=== PATIENT | male | born 1935 | race Caucasian/White ===

== ENCOUNTER 2017-04-23 12:56 | Emergency (ER) | payer OTHER ==
[2017-04-23 13:14] VITALS: BMI 25.7
--- NOTE | 2017-04-23 13:30 | DR.MBACK ---
HPI - Time Seen Time seen: 13:45 - PCP Primary Care Physician: Quoc PAGE - HPI Comment HPI Comment: PATIENT FELL LAST NIGHT. LOWER BACK PAIN. WEAK. MONITOR INDICATED A FIB WITH RVR. THIS IS NEW TO PATIENT. FEW DAYS ADO D/C FROM [facility]. BEING HAVING PROBLEM WALKING FROM WEAKNESS. HAVING CHEST PAIN. - Complaint Chief Complaint:: LOW BACK PAIN S/P FALL WHICH OCCURED LAST NIGHT. PT. HAS SEVERE PAIN UPON MOVEMENT. PT. WAS UNABLE TO GET OUT OF BED THIS MORNING DUE TO THE PAIN. DAUGHTER STATES PT. WAS REALEASED FROM [facility] ON THURSDAY. PT. HAD A RENAL STENT PLACED ON THURSDAY WELL LITHOTRIPSY. PT. HAS ALSO HAD GENERALIZED WEAKNESS AND AMS. DAUGHTER STATES PT. HAS HAD AN INDWELLING CATHETER SINCE 2015. - Reviewed Nurses Notes Review: Yes - Source History Provided: Family Member, EMS - Mode of Arrival Mode of Arrival: EMS - Timing Onset of Chief Complaint: 04/22/17 - Duration Duration: Constant Duration: Days - Location Back Pain Location: BACK, Lumbar Radiation To: None - Severity Severity: Moderate - Quality Quality: Sharp - Context Onset: Fall - Modifying Factors Worsened By: Movement, Twisting - Associated Signs and Symptoms Back Pain Symptoms: Anorexia, Hematuria Numbness: None Weakness: None PMH - PMH Past Medical History: Yes Past Medical History: Diabetes, Hypertension, Kidney Stones, [place], Renal Disease Past Medical History Comment: ACUTE KIDNEY FAILURE, RECURRENT UTI'S, PROSTATE ISSUES, PARKINSON'S Past Surgical History: Yes Surgical History: Angioplasty/Stents, CABG/Valve Surgery, Lithotripsy, Other Past Surgical History Comment: RENAL STENTS - Family History History of Family Medical Conditions: No - Social History Does patient currently use any type of tobacco product: No Have you used tobacco products in the last 12 months: No Type of Tobacco Use: None Does any household member use tobacco: No Alcohol Use: None Do you use any recreational Drugs:: No Lives With: Alone Lives Where: Home - infectious screening In the last 2 months have you had wt loss of >10#?: NO Have you had fever, night sweats or hemotysis?: No Have you traveled outside the country in the last 6 months?: No Isolation: Standard ROS - Review of Systems Constitutional: Weakness, Fatigue. negative: Chills, Fever Eyes: negative: Eye Pain, Discharge ENTM: negative: Ear Discharge, Nose Discharge, Nose Congestion, Throat Pain Respiratoy: Non-Productive Cough, Short of Breath, Wheezing. negative: Hemoptysis Cardiovascular: Chest Pain, Palpitations Gastrointestinal/Abdominal: No Symptoms Reported Genitourinary: Hematuria Neurological: Headache, Weakness, Dizziness Musculoskeletal: Back Pain, Muscle Pain, Hip Integumentary: Change in Color Hematologic/Lymphatic: Easy Bleeding, Easy Bruising Endocrine: Decreased Appetite. negative: Increased Thirst, Increased Urine All Other Systems: Reviewed and Negative Unable to Obtain Due To: Altered mental status PE - Vital Signs Vitals: Temperature 98.5 F Pulse Rate [Apical] 98 Pulse Rate [Left Brachial] 115 Pulse Rate 119 Respiratory Rate 22 Blood Pressure [Right Arm] 155/90 Blood Pressure [Left Arm] 158/84 Blood Pressure 180/74 O2 Sat by Pulse Oximetry 98 - General Limitations: Altered Mental Status General Appearance: Alert - Head Head Exam: Normal Inspection - Eyes Eye exam: PERRL, EOMI. negative: Scleral Icterus, Conjunctival Injection - ENT ENT Exam: Normal External Ear Exam - Chest Chest Inspection: Symmetric Chest Wall Rise - Respiratory Respiratory Exam: Normal Lung Sounds Bilat Respiratory Exam: Bilateral Rhonchi, Upper Rhonchi, Lower Rhonchi - Cardiovascular Cardiovascular Exam: Irregular Rhythm - Abdominal Exam Abdominal Exam: Normal Bowel Sounds, Soft. negative: Tenderness - Rectal Rectal Exam: Deferred - Genitourinary Exam: Male: Deferred - Extremities Extremities Exam: Normal Inspection - Back Back Exam: Muscle Spasm, Vertebral Tenderness (LOWER BACK) - Neurological Neurological Exam: Alert - Psychiatric Psychiatric Exam: Normal Affect, Normal Mood - Skin Skin Exam: Dry MDM - Additional Information Additional Information Obtained From: Family - Differential Diagnosis Differential Diagnosis: Fracture, Musculoskeletal Pain ([place] WEAKNESS, A FIB), Pyelonephritis (A FIB WITH RVR NEW ONSET, CHEST PAIN, GENERALIZE WEAKNESS), Strain Course - Treatment Treatment: SEE ORDERS. CARDIOSURINDER LARRY IN ED. - Reevaluation 1st: Improved - Consultation Consultation Comments: DISCUSS PATIENT WITH DR. SEN [facility]. HE ACCEPTED PATIENT FOR TRANSFER. - Education/Counseling Education/Counseling: Patient, Family, Education Educated On: Diagnosis ROR - Labs Reviewed Laboratory Results Reviewed?: Yes Result Diagrams: 04/23/17 14:02 04/23/17 14:02 Laboratory: WBC 7.1 X10^3/uL (3.6-10.0) 04/23/17 14:02 RBC 4.24 X10^6/uL (4.7-6.0) L 04/23/17 14:02 Hgb 10.5 g/dL (13.5-18.0) L 04/23/17 14:02 Hct 32.3 % (42.0-54.0) L 04/23/17 14:02 MCV 76.2 fL (80.0-100.0) L 04/23/17 14:02 MCH 24.7 pg (27.0-34.0) L 04/23/17 14:02 MCHC 32.5 g/dL (33.0-35.0) L 04/23/17 14:02 RDW 18.7 % (11.6-16.5) H 04/23/17 14:02 Plt Count 208 X10^3/uL (150.0-450.0) 04/23/17 14:02 Plt Count Comment Adequate (ADEQUATE) 04/23/17 14:02 MPV 8.2 fL (7.4-11.0) 04/23/17 14:02 Neut % 77.1 % (42.0-75.0) H 04/23/17 14:02 Lymph % 14.5 % (21.0-51.0) L 04/23/17 14:02 [place] % 7.1 % (0.0-13.0) 04/23/17 14:02 Eos % 0.7 % (0.9-2.9) L 04/23/17 14:02 Baso % 0.6 % (0.2-1.0) 04/23/17 14:02 Neut # 5.5 x10^3/uL (2.2-4.8) H 04/23/17 14:02 Lymph # 1.0 X10^3/uL (1.3-2.9) L 04/23/17 14:02 [place] # 0.5 x10^3/uL (0.3-0.8) 04/23/17 14:02 Eos # 0.0 x10^3/uL (0.0-0.2) 04/23/17 14:02 Baso # 0.0 X10^3/uL (0.0-0.1) 04/23/17 14:02 Absolute Nucleated RBC 0.0 /100WBC 04/23/17 14:02 Plt Morphology Comment Normal (NORMAL) 04/23/17 14:02 RBC Morphology Abnormal (NORMAL) 04/23/17 14:02 Hypochromasia Slight A 04/23/17 14:02 Anisocytosis 1+ A 04/23/17 14:02 Microcytosis Slight A 04/23/17 14:02 Sample Site Left radial 04/23/17 14:01 ABG pH 7.460 (7.35-7.45) H 04/23/17 14:01 ABG pCO2 35.0 mmHg (35.0-45.0) 04/23/17 14:01 ABG pO2 69.0 mmHg (80.0-100.0) L 04/23/17 14:01 ABG HCO3 24.9 mmol/L (22-26) 04/23/17 14:01 ABG O2 Saturation 95.0 % (90-100) 04/23/17 14:01 ABG Base Excess 1.3 mmol/L (-2.0-2.0) 04/23/17 14:01 Delonte Test Pos 04/23/17 14:01 A-a Gradient 37.0 mmHg 04/23/17 14:01 FiO2 21.000 04/23/17 14:01 Blood Gas Comments Fab well gb 04/23/17 14:01 Sodium 137 mmol/L (136-145) 04/23/17 14:02 Corrected Sodium 138 mmol/L (136-145) 04/23/17 14:02 Potassium 3.4 mmol/L (3.5-5.1) L 04/23/17 14:02 Chloride 99 mmol/L (98-107) 04/23/17 14:02 Carbon Dioxide 27.3 mmol/L (21-32) 04/23/17 14:02 BUN 11 mg/dL (7-18) 04/23/17 14:02 Creatinine 1.38 mg/dL (0.70-1.30) H 04/23/17 14:02 Est GFR (MDRD) Af Amer > 60 (>60) 04/23/17 14:02 Est GFR (MDRD) Non-Af 52 (>60) L 04/23/17 14:02 Glucose 162 mg/dL (65-99) H 04/23/17 14:02 Calcium 8.7 mg/dL (8.5-10.1) 04/23/17 14:02 Corrected Calcium 10.4 mg/dL (8.5-10.1) H 04/23/17 14:02 Total Bilirubin 0.40 mg/dL (0.2-1.0) 04/23/17 14:02 AST 23 Units/L (15-37) 04/23/17 14:02 ALT 18 Units/L (12-78) 04/23/17 14:02 Alkaline Phosphatase 107 Units/L (46-116) 04/23/17 14:02 Creatine Kinase 32 Units/L (39-308) L 04/23/17 14:02 CK-MB (CK-2) < 1.0 ng/mL (0-4.0) 04/23/17 14:02 CK/CKMB % Calc 3.1 % (<4) 04/23/17 14:02 Troponin I 0.05 ng/mL (0-1.5) 04/23/17 14:02 Total Protein 7.1 g/dL (6.4-8.2) 04/23/17 14:02 Albumin 1.9 g/dL (3.4-5.0) L 04/23/17 14:02 Globulin 5.2 g/dL (2.5-4.5) H 04/23/17 14:02 Albumin/Globulin Ratio 0.4 Ratio (1.1-2.1) L 04/23/17 14:02 Specimen Type Catherized urine 04/23/17 14:12 Urine Color Yellow (YELLOW) 04/23/17 14:12 Urine Appearance Clear (CLEAR) 04/23/17 14:12 Urine pH 6.5 (5.0 - 8.0) 04/23/17 14:12 Ur Specific Landers 1.015 (1.000-1.030) 04/23/17 14:12 Urine Protein 3+ (NEGATIVE) 04/23/17 14:12 Urine Glucose (UA) 2+ (NEGATIVE) 04/23/17 14:12 Urine Ketones 3+ (NEGATIVE) 04/23/17 14:12 Urine Occult Blood 5+ (NEGATIVE) 04/23/17 14:12 Urine Nitrite Negative (NEGATIVE) 04/23/17 14:12 Urine Bilirubin Negative (NEGATIVE) 04/23/17 14:12 Urine Urobilinogen Normal (NORMAL) 04/23/17 14:12 Ur Leukocyte Esterase 1+ (NEGATIVE) 04/23/17 14:12 Urine RBC 25-30 /HPF (NEGATIVE) 04/23/17 14:12 Urine WBC 0-3 /HPF (NEGATIVE) 04/23/17 14:12 Ur Squamous Epith Cells Rare /HPF (NEGATIVE) 04/23/17 14:12 Urine Bacteria Negative /HPF (NEGATIVE) 04/23/17 14:12 Ur Culture Indicated? No/not indicated 04/23/17 14:12 - XRAY XRAY Interpreted by: Radiologist XRAY Findings: REPORT DISCUSS WITH PATIENT AND HIS FAMILY. - EKG Rhythm: Afib (A FIB WITH RVR. EKG NOTED.) - Diagnosis Discharge Problem: New onset atrial fibrillation, Atrial fibrillation with RVR, Generalized weakness, Hypokalemia Fracture of L1 vertebra Qualifiers: Encounter type: initial encounter Fracture type: closed Fracture morphology: other fracture Qualified Code(s): S32.018A - Other fracture of first lumbar vertebra, initial encounter for closed fracture Back pain Qualifiers: Back pain location: low back pain Chronicity: acute Back pain laterality: bilateral Sciatica presence: without sciatica Qualified Code(s): M54.5 - Low back pain - Discharge Plan Disposition: XF [facility] Condition: Stable - Follow ups/Referrals Follow ups/Referrals: TARIQ KNOTT [Primary Care Provider] - 3 days - Instructions
--- NOTE | 2017-04-23 14:09 | RAD ---
History: Back pain, hypertension, coronary artery disease Study: Chest single view Findings: Single AP view of the chest demonstrates normal heart size. Sternal metallic sutures and me diastinal clips are present. There is limited calcification within the aortic arch. There is exaggera tion the interstitial markings in the mid and lower left lung which may be chronic in nature. The rig ht lung is clear. There are no pleural effusions. Impression: Chronic versus acute interstitial disease at the left lung base. Reported By:
[2017-04-23 14:13] LABS: BASOPHILS % (AUTO) 0.6 % (0.2-1.0); EOSINOPHILS % (AUTO) 0.7 % (0.9-2.9); HEMATOCRIT 32.3 % (42.0-54.0); HEMOGLOBIN 10.5 g/dL (13.5-18.0); LYMPHOCYTES % (AUTO) 14.5 % (21.0-51.0); MEAN CORPUSCULAR HEMOGLOBIN 24.7 pg (27.0-34.0); MEAN CORPUSCULAR HGB CONC 32.5 g/dL (33.0-35.0); MEAN CORPUSCULAR VOLUME 76.2 fL (80.0-100.0); MEAN PLATELET VOLUME 8.2 fL (7.4-11.0); MONOCYTES # (AUTO) 0.5 x10^3/uL (0.3-0.8); MONOCYTES % (AUTO) 7.1 % (0.0-13.0); NEUTROPHILS # (AUTO) 5.5 x10^3/uL (2.2-4.8); NEUTROPHILS % (AUTO) 77.1 % (42.0-75.0); PLATELET COUNT 208 X10^3/uL (150.0-450.0); RED BLOOD COUNT 4.24 X10^6/uL (4.7-6.0); RED CELL DISTRIBUTION WIDTH 18.7 % (11.6-16.5); WHITE BLOOD COUNT 7.1 X10^3/uL (3.6-10.0)
[2017-04-23] MEDS ORDERED: NS 1000 ML 1,000 ML ONE (14:13)
[2017-04-23 14:26] LABS: ABG ALLEN TEST POS; ABG BASE EXCESS 1.3 mmol/L (-2.0-2.0); ABG HCO3 24.9 mmol/L (22-26)
--- NOTE | 2017-04-23 14:26 | CT ---
HISTORY: AMS, fall Study: CT brain without contrast Comparison: None Technique: Multiple axial images of the brain were obtained from the skull base to the vertex without administra tion of IV contrast. Dose reduction techniques including Automated Exposure Control (AEC) and adjust ment of mA and kV were utilized. Findings: There is atrophy and nonspecific white matter hypoattenuation likely related to microvascular ischemi c changes. No evidence of acute hemorrhage, midline shift, mass effect or abnormal extra-axial fluid collection. The ventricular system is symmetric and nondilated. The soft tissues and osseous struc tures are unremarkable. There is right frontal, ethmoid, and sinus mucosal thickening with layering s ecretions suggestive of acute sinusitis. IMPRESSION: 1. Cerebral volume loss and nonspecific white matter changes likely due to chronic microvascular dise ase. No acute intracranial abnormality identified. 2. Right frontal, ethmoid and maxillary sinus disease, correlate clinically for acute sinusitis. Reported By:
[2017-04-23 14:27] LABS: BILIRUBIN,URINE NEGATIVE (NEGATIVE); BLOOD/HEMOGLOBIN,URINE 5+ (NEGATIVE); GLUCOSE, URINE 2+ (NEGATIVE); KETONES,URINE 3+ (NEGATIVE); LEUKOCYTE ESTERASE ,URINE 1+ (NEGATIVE); NITRITES,URINE NEGATIVE (NEGATIVE); PH,URINE 6.5 (5.0 - 8.0); PROTEIN,URINE 3+ (NEGATIVE); UROBILINOGEN,URINE NORMAL (NORMAL)
[2017-04-23 14:32] LABS: BLOOD UREA NITROGEN 11 mg/dL (7-18); CALCIUM 8.7 mg/dL (8.5-10.1); CARBON DIOXIDE 27.3 mmol/L (21-32); CHLORIDE 99 mmol/L (98-107); COR NA(FOR HYPERGLY) 138 mmol/L (136-145); CREATININE 1.38 mg/dL (0.70-1.30); SODIUM 137 mmol/L (136-145); TROPONIN I 0.05 ng/mL (0-1.5); eGFR BLACK RACES > 60 (>60); eGFR NON BLACK RACES 52 (>60)
--- NOTE | 2017-04-23 14:34 | CT ---
HISTORY: Low back pain status post fall last night, severe pain with movement Study: CT lumbar spine without contrast Comparison: None Technique: Multiple axial images of the lumbar spine without the administration of IV contrast. Sag ittal and coronal reformats were performed and reviewed. Dose reduction techniques including Automat ed Exposure Control (AEC) and adjustment of mA and kV were utilized. Findings: Multilevel spondylosis is noted. There is an acute fracture of the superior endplate of L2 with minim al height loss and no significant retropulsion. The posterior elements appear intact with mild facet arthropathy is noted. The remaining vertebral body heights are preserved. There is a subacute to chrome plater jean-pierre fracture of the posterior right 12th rib. There is bilateral renal atrophy and perinephric strand ing. There is a partially visualized left ureteral stent in place. There is a nonobstructing left erick al calculus noted. There is prominence of the proximal right renal collecting system. IMPRESSION: 1. Acute fracture at the superior endplate of L2 with minimal height loss and no significant retropul debbie. 2. Chronic findings as described. Reported By:
[2017-04-23 14:36] LABS: ALANINE AMINOTRANSFERASE 18 Units/L (12-78); ALBUMIN 1.9 g/dL (3.4-5.0); ALKALINE PHOSPHATASE 107 Units/L (46-116); ASPARTATE AMINO TRANSFERASE 23 Units/L (15-37); CKMB % 3.1 % (<4); COR CA(FOR HYPOALB) 10.4 mg/dL (8.5-10.1); CREATINE KINASE 32 Units/L (39-308); CREATINE KINASE MB < 1.0 ng/mL (0-4.0); TOTAL PROTEIN 7.1 g/dL (6.4-8.2)
[2017-04-23 14:41] LABS: APPEARANCE,URINE CLEAR (CLEAR); BACTERIA,URINE NEGATIVE /HPF (NEGATIVE); COLOR,URINE YELLOW (YELLOW); RBC,URINE 25-30 /HPF (NEGATIVE); SQUAMOUS EPITHELIAL CELL,UR RARE /HPF (NEGATIVE)
--- NOTE | 2017-04-23 14:41 | CT ---
HISTORY: Low back pain after fall, right hip pain Study: CT pelvis without contrast Comparison: None Technique: Multiple axial images of pelvis were obtained without the administration of IV contrast. Dose reduct ion techniques including Automated Exposure Control (AEC) and adjustment of mA and kV were utilized. Findings: There are degenerative changes of the lumbosacral spine. No evidence of acute fracture or dislocation . The soft tissues are intact. Calcified plaque is noted in the aorta and iliac arteries. No patholog ically enlarged lymph nodes are identified. The prostate gland is enlarged. There is a Drummond catheter in the urinary bladder is well as a partially visualized left ureteral stent. IMPRESSION: 1. No acute osseous abnormality. 2. Enlarged prostate gland. Drummond catheter in the urinary bladder with partially visualized distal le ft ureteral stent. Reported By:
[2017-04-23 14:46] LABS: ANISOCYTOSIS 1+; HYPOCHROMASIA SLIGHT; MICROCYTOSIS SLIGHT; PLATELET MORPHOLOGY COMMENT NORMAL (NORMAL)
[2017-04-23] MEDS ORDERED: NS 100 ML IV 100 ML IV ONE (15:50)
[2017-04-23] MEDS ORDERED: CARDIZEM INJ 125 MG VIAL ONE (15:50)
[2017-04-23] MEDS ORDERED: CARDIZEM INJ 50 MG VIAL ONE (15:58)
[2017-04-23] MEDS ORDERED: CARDIZEM INJ 125 MG VIAL 125 MG in NS 100 ML IV 100 ML IV PRN (16:02)
[2017-04-23] MEDS ORDERED: CARDIZEM INJ 50 MG VIAL IVP ONE (16:02)
[2017-04-23] MEDS ORDERED: K-LYTE EFFERVESCENT ONE (16:16)
[2017-04-23 16:47] VITALS: BP 155/90
[2017-04-23] MEDS ORDERED: K-LYTE EFFERVESCENT PO SCH (17:00)
== END 2017-04-23 16:55 | disposition short-term general hospital (02) ==
LOC: ER 13:06
DX: I48.91 Unspecified atrial fibrillation (principal); R53.1 Weakness; E87.6 Hypokalemia; S32.018A Other fracture of first lumbar vertebra, initial encounter for closed fracture; M54.5 Low back pain; W19.XXXA Unspecified fall, initial encounter; Y92.9 Unspecified place or not applicable; R51 Headache; M25.559 Pain in unspecified hip
CPT/HCPCS: 36415; 36600; 70450; 71010; 72131; 72192; 80053; 81001; 82550; 82553; 82803; 84484; 85025; 93005; 93010; 93041; 96365; 96374; 96375; 99285; A4222; J3490